=== PATIENT | male | born 1975 | race Caucasian/White ===

== ENCOUNTER 2021-01-09 17:16 | Inpatient (IN) ==
[2021-01-09] MEDS ORDERED: Naloxone 0.4 MG/ML INJ IVP PRN (20:53)
[2021-01-09] MEDS ORDERED: Ondansetron 4 MG/2 ML VIAL IVP PRN (20:53)
[2021-01-09] MEDS ORDERED: Furosemide 20 MG/2 ML VIAL IVP SCH (21:00)
[2021-01-09] MEDS ORDERED: *HR* Heparin 5,000 UNIT/ML VIAL IVP PRN ×2 (22:20)
[2021-01-09] MEDS ORDERED: Ipratropium 1 PUFF INHALER IH ONE (22:21)
[2021-01-09 22:31] LABS: VBG HCO3 29 mEq/L (21-27); VBG PCO2 43 mmHg (41-51); VBG PH 7.44 pH Units (7.32-7.42); VBG PO2 147 mmHg (25-50)
[2021-01-09] MEDS: Heparin 25,000UNIT/250ML 1/2NS 25,000 UNIT/250 ML IV.SOLN IVC SCH (23:09)
[2021-01-09] MEDS: Ipratropium 1 PUFF INHALER IH SCH (23:53)
[2021-01-10] MEDS ORDERED: Ipratropium/Albuterol Neb 3 ML IH SCH
[2021-01-10 03:36] LABS: Basophils # 0.1 K/mcL (0.0-0.2); Basophils % 0.6 %; Hemoglobin 15.6 g/dL (12.9-16.9); Immature Granulocytes % 4.1 % (0-4); Lymphocytes # 0.9 K/mcL (0.6-4.6); Lymphocytes % 7.2 %; Mean Corpuscular HGB Conc 33.9 g/dL (31.6-35.5); Mean Corpuscular Hemoglobin 31.1 pg (28.0-33.3); Mean Corpuscular Volume 91.6 fL (83.0-100.0); Mean Platelet Volume 11.3 fL (9.4-12.4); Monocytes # 0.8 K/mcL (0.0-1.3); Neutrophils # 10.4 K/mcL (1.6-8.9); Nucleated Red Blood Cells 0.2 /100 WBC (0); Platelet Count 166 K/mcL (140-400); Red Blood Count 5.02 M/mcL (4.19-5.50); Red Cell Distribution Width 13.7 % (11.5-14.5); Segmented Neutrophils % 82.1 %; White Blood Count 12.7 K/mcL (4.3-11.1)
[2021-01-10 03:52] LABS: INR 1.4; Prothrombin Time 16.3 Seconds (9.4-12.1)
[2021-01-10 03:53] LABS: Alanine Aminotransferase 31 Units/L (7-52); Albumin 3.6 g/dL (3.5-5.7); Albumin/Globulin Ratio 1.4 (1.1-2.2); Alkaline Phosphatase 82 Units/L (34-104); Aspartate Amino Transferase 69 Units/L (13-39); BUN/Creatinine Ratio 33 (6-26); Bilirubin,Total 1.8 mg/dL (0.3-1.0); Blood Urea Nitrogen 26 mg/dL (6-20); Calcium 8.1 mg/dL (8.6-10.3); Carbon Dioxide 27 mEq/L (23-29); Chloride 101 mEq/L (98-107); Globulin 2.6 g/dL (2.4-3.5); Glucose 123 mg/dL (70-105); Magnesium 2.4 mg/dL (1.6-2.6); Osmolality,Calculated 292 (280-300); Potassium 3.8 mEq/L (3.5-5.1); Sodium 138 mEq/L (136-145); Total Protein 6.2 g/dL (6.4-8.9); eGFR For African Americans > 60 (> 60); eGFR For Non-African Americans > 60 (> 60)
[2021-01-10 03:55] LABS: Heparin anti-factor XA UFH 1.21 IU/mL (0.30-0.70)
[2021-01-10] MEDS: Ipratropium 1 PUFF INHALER IH SCH ×6 (04:27→23:20)
[2021-01-10 04:35] LABS: ABG Base Excess 5 mEq/L (-2 to 3); ABG HCO3 28 mEq/L (21-27); ABG Oxygen Saturation 97 % (95-98); ABG PCO2 36 mmHg (35-45); ABG PH 7.51 pH Units (7.32-7.45); ABG PO2 79 mmHg (85-104); ABG TCO2 29 mEq/L (20-26); Blood Gas Modality ST
[2021-01-10] MEDS ORDERED: *HR* LORazepam 2 MG/ML VIAL IVP ONE (06:35)
[2021-01-10] MEDS: Furosemide 20 MG/2 ML VIAL IVP SCH ×2 (08:18→16:24)
[2021-01-10] MEDS: Dexmedetomidine HCl 400 MCG/100 ML MLS IVC SCH ×3 (08:23→21:45)
[2021-01-10] MEDS: Pantoprazole 40 MG VIAL IVP SCH (08:24)
[2021-01-10] MEDS ORDERED: Remdesivir 100 MG in 0.9 % Sodium Chloride 100 ML IVPB ONE (10:00)
[2021-01-10] MEDS ORDERED: Lidocaine -MPF 1% 5 ML AMPUL INFILT ONE ×2 (10:13→12:04)
[2021-01-10] MEDS: Heparin 25,000UNIT/250ML 1/2NS 25,000 UNIT/250 ML IV.SOLN IVC SCH (13:09)
[2021-01-11 02:02] LABS: Albumin 3.4 g/dL (3.5-5.7); Bilirubin,Direct 0.8 mg/dL (0.0-0.2); Bilirubin,Indirect 1.3 mg/dL (0.0-1.0); Bilirubin,Total 2.1 mg/dL (0.3-1.0)
[2021-01-11 02:05] LABS: Albumin/Globulin Ratio 1.4 (1.1-2.2); Globulin 2.4 g/dL (2.4-3.5); Total Protein 5.8 g/dL (6.4-8.9)
[2021-01-11] MEDS: Dexmedetomidine HCl 400 MCG/100 ML MLS IVC SCH ×4 (02:29→18:42)
[2021-01-11] MEDS: Ipratropium 1 PUFF INHALER IH SCH ×6 (03:24→23:49)
[2021-01-11 06:36] LABS: Hematocrit 45.6 % (37.5-50.1); Mean Corpuscular HGB Conc 32.9 g/dL (31.6-35.5); Mean Corpuscular Hemoglobin 30.3 pg (28.0-33.3); Mean Corpuscular Volume 92.1 fL (83.0-100.0); Mean Platelet Volume 11.4 fL (9.4-12.4); Nucleated Red Blood Cells 0.1 /100 WBC (0); Platelet Count 172 K/mcL (140-400); Red Blood Count 4.95 M/mcL (4.19-5.50); Red Cell Distribution Width 13.4 % (11.5-14.5); White Blood Count 17.9 K/mcL (4.3-11.1)
[2021-01-11 06:46] LABS: Heparin anti-factor XA UFH 0.27 IU/mL (0.30-0.70)
[2021-01-11 06:53] LABS: Alanine Aminotransferase 22 Units/L (7-52); Albumin 3.2 g/dL (3.5-5.7); Albumin/Globulin Ratio 1.3 (1.1-2.2); Alkaline Phosphatase 81 Units/L (34-104); Aspartate Amino Transferase 46 Units/L (13-39); BUN/Creatinine Ratio 34 (6-26); Blood Urea Nitrogen 31 mg/dL (6-20); Carbon Dioxide 28 mEq/L (23-29); Chloride 101 mEq/L (98-107); Globulin 2.4 g/dL (2.4-3.5); Glucose 140 mg/dL (70-105); Osmolality,Calculated 293 (280-300); Sodium 137 mEq/L (136-145); Total Protein 5.6 g/dL (6.4-8.9); eGFR For African Americans > 60 (> 60); eGFR For Non-African Americans > 60 (> 60)
[2021-01-11] MEDS: Heparin 25,000UNIT/250ML 1/2NS 25,000 UNIT/250 ML IV.SOLN IVC SCH (07:30)
[2021-01-11 08:17] LABS: Lymphocytes # 1.1 K/mcL (0.6-4.6); Monocytes # 0.4 K/mcL (0.0-1.3); Neutrophils # 16.5 K/mcL (1.6-8.9); Platelet Estimate Normal (Normal)
[2021-01-11] MEDS: Pantoprazole 40 MG VIAL IVP SCH (08:39)
[2021-01-11] MEDS: Furosemide 20 MG/2 ML VIAL IVP SCH ×2 (08:39→16:53)
[2021-01-11] MEDS: Cholecalciferol (D-3) 1,000 UNIT (25MCG) TABLET PO SCH (11:13)
[2021-01-12] MEDS: Heparin 25,000UNIT/250ML 1/2NS 25,000 UNIT/250 ML IV.SOLN IVC SCH ×4 (00:30→16:00)
[2021-01-12] MEDS: Dexmedetomidine HCl 400 MCG/100 ML MLS IVC SCH ×4 (01:15→21:43)
[2021-01-12] MEDS: Ipratropium 1 PUFF INHALER IH SCH ×6 (03:14→20:24)
[2021-01-12 04:17] LABS: Hematocrit 46.1 % (37.5-50.1); Hemoglobin 15.2 g/dL (12.9-16.9); Mean Corpuscular Hemoglobin 30.4 pg (28.0-33.3); Mean Corpuscular Volume 92.2 fL (83.0-100.0); Platelet Count 201 K/mcL (140-400); Red Cell Distribution Width 13.6 % (11.5-14.5); White Blood Count 20.4 K/mcL (4.3-11.1)
[2021-01-12 04:39] LABS: BUN/Creatinine Ratio 35 (6-26); Blood Urea Nitrogen 35 mg/dL (6-20); Calcium 8.2 mg/dL (8.6-10.3); Carbon Dioxide 29 mEq/L (23-29); Chloride 99 mEq/L (98-107); Glucose 144 mg/dL (70-105); Magnesium 2.8 mg/dL (1.6-2.6); Osmolality,Calculated 297 (280-300); Phosphorous 3.7 mg/dL (2.7-4.5); Sodium 138 mEq/L (136-145); eGFR For African Americans > 60 (> 60); eGFR For Non-African Americans > 60 (> 60)
[2021-01-12] MEDS: Pantoprazole 40 MG VIAL IVP SCH (08:38)
[2021-01-12] MEDS: Furosemide 20 MG/2 ML VIAL IVP SCH ×2 (08:38→16:16)
[2021-01-12] MEDS ORDERED: Saline Nasal Spray 44 ML BOTTLE NS PRN ×2 (08:42→12:01)
[2021-01-12] MEDS: Cholecalciferol (D-3) 1,000 UNIT (25MCG) TABLET PO SCH (10:11)
[2021-01-12] MEDS ORDERED: *HR* Heparin 5,000 UNIT/ML VIAL IVP PRN ×2 (12:01)
[2021-01-12] MEDS ORDERED: Ondansetron 4 MG/2 ML VIAL IVP PRN (12:01)
[2021-01-12] MEDS ORDERED: Naloxone 0.4 MG/ML INJ IVP PRN (12:01)
[2021-01-12] MEDS: Acetaminophen 325 MG TABLET PO PRN (17:26)
[2021-01-13] MEDS: Ipratropium 1 PUFF INHALER IH SCH ×7 (00:04→23:43)
[2021-01-13 03:44] LABS: Hematocrit 42.9 % (37.5-50.1); Hemoglobin 13.9 g/dL (12.9-16.9); Mean Corpuscular HGB Conc 32.4 g/dL (31.6-35.5); Mean Corpuscular Hemoglobin 30.1 pg (28.0-33.3); Mean Corpuscular Volume 92.9 fL (83.0-100.0); Mean Platelet Volume 11.7 fL (9.4-12.4); Platelet Count 235 K/mcL (140-400); Red Blood Count 4.62 M/mcL (4.19-5.50); Red Cell Distribution Width 13.6 % (11.5-14.5); White Blood Count 21.4 K/mcL (4.3-11.1)
[2021-01-13] MEDS: Dexmedetomidine HCl 400 MCG/100 ML MLS IVC SCH ×3 (04:10→19:45)
[2021-01-13 04:21] LABS: Alanine Aminotransferase 14 Units/L (7-52); Albumin 3.1 g/dL (3.5-5.7); Albumin/Globulin Ratio 1.1 (1.1-2.2); Alkaline Phosphatase 57 Units/L (34-104); Aspartate Amino Transferase 38 Units/L (13-39); BUN/Creatinine Ratio 36 (6-26); Bilirubin,Total 1.3 mg/dL (0.3-1.0); Blood Urea Nitrogen 35 mg/dL (6-20); Calcium 7.8 mg/dL (8.6-10.3); Carbon Dioxide 26 mEq/L (23-29); Chloride 94 mEq/L (98-107); Globulin 2.7 g/dL (2.4-3.5); Glucose 214 mg/dL (70-105); Osmolality,Calculated 284 (280-300); Potassium 4.1 mEq/L (3.5-5.1); Sodium 130 mEq/L (136-145); Total Protein 5.8 g/dL (6.4-8.9); eGFR For African Americans > 60 (> 60); eGFR For Non-African Americans > 60 (> 60)
[2021-01-13] MEDS: Furosemide 20 MG/2 ML VIAL IVP SCH ×2 (08:16→15:59)
[2021-01-13] MEDS: Pantoprazole 40 MG VIAL IVP SCH (08:16)
[2021-01-13] MEDS ORDERED: Cholecalciferol (D-3) 1,000 UNIT (25MCG) TABLET PO SCH (09:00)
[2021-01-13] MEDS: Heparin 25,000UNIT/250ML 1/2NS 25,000 UNIT/250 ML IV.SOLN IVC SCH (11:45)
[2021-01-13] MEDS: Cholecalciferol (D-3) 1,000 UNIT (25MCG) TABLET PO SCH (11:45)
[2021-01-14] MEDS: Dexmedetomidine HCl 400 MCG/100 ML MLS IVC SCH ×3 (01:58→16:59)
[2021-01-14] MEDS: Heparin 25,000UNIT/250ML 1/2NS 25,000 UNIT/250 ML IV.SOLN IVC SCH (03:54)
[2021-01-14 04:03] LABS: VBG Ionized Calcium 1.04 mmol/L (1.15-1.35)
[2021-01-14 04:12] LABS: Basophils # 0.1 K/mcL (0.0-0.2); Basophils % 0.5 %; Eosinophils # 0.1 K/mcL (0.0-0.6); Eosinophils % 0.4 %; Hemoglobin 15.1 g/dL (12.9-16.9); Immature Granulocytes % 5.2 % (0-4); Lymphocytes # 1.1 K/mcL (0.6-4.6); Lymphocytes % 4.9 %; Mean Corpuscular HGB Conc 33.6 g/dL (31.6-35.5); Mean Corpuscular Hemoglobin 31.2 pg (28.0-33.3); Mean Platelet Volume 11.7 fL (9.4-12.4); Monocytes % 4.3 %; Neutrophils # 19.3 K/mcL (1.6-8.9); Platelet Count 279 K/mcL (140-400); Red Blood Count 4.84 M/mcL (4.19-5.50); Red Cell Distribution Width 13.3 % (11.5-14.5); Segmented Neutrophils % 84.7 %; White Blood Count 22.8 K/mcL (4.3-11.1)
[2021-01-14] MEDS: Ipratropium 1 PUFF INHALER IH SCH ×5 (04:22→20:24)
[2021-01-14 04:31] LABS: Alanine Aminotransferase 13 Units/L (7-52); Albumin 3.3 g/dL (3.5-5.7); Albumin/Globulin Ratio 1.1 (1.1-2.2); Alkaline Phosphatase 65 Units/L (34-104); Aspartate Amino Transferase 36 Units/L (13-39); BUN/Creatinine Ratio 37 (6-26); Bilirubin,Total 1.3 mg/dL (0.3-1.0); Blood Urea Nitrogen 38 mg/dL (6-20); Calcium 8.3 mg/dL (8.6-10.3); Carbon Dioxide 26 mEq/L (23-29); Chloride 95 mEq/L (98-107); Globulin 3.1 g/dL (2.4-3.5); Glucose 148 mg/dL (70-105); Lactate Dehydrogenase 941 Units/L (140-271); Osmolality,Calculated 286 (280-300); Potassium 4.4 mEq/L (3.5-5.1); Sodium 132 mEq/L (136-145); Total Protein 6.4 g/dL (6.4-8.9); eGFR For African Americans > 60 (> 60); eGFR For Non-African Americans > 60 (> 60)
[2021-01-14 04:52] LABS: Ferritin > 1500 ng/mL (20-250)
[2021-01-14 05:09] LABS: Platelet Estimate Normal (Normal); Toxic Granulation Present (Not Present)
[2021-01-14] MEDS: Calcium Gluconate 1gm/50mL 1 GM/50 ML BAG IVPB SCH ×2 (05:35→06:33)
[2021-01-14] MEDS: Pantoprazole 40 MG VIAL IVP SCH (08:49)
[2021-01-14] MEDS: Furosemide 20 MG/2 ML VIAL IVP SCH ×2 (08:50→16:59)
[2021-01-14] MEDS: Cholecalciferol (D-3) 1,000 UNIT (25MCG) TABLET PO SCH (09:28)
[2021-01-14] MEDS: *HR* Enoxaparin 40 MG/0.4 ML SYRINGE SQ SCH (16:57)
[2021-01-14] MEDS: Acetaminophen 325 MG TABLET PO PRN (20:50)
[2021-01-15] MEDS: Ipratropium 1 PUFF INHALER IH SCH ×7 (00:15→23:46)
[2021-01-15] MEDS: *HR* Enoxaparin 40 MG/0.4 ML SYRINGE SQ SCH (03:11)
[2021-01-15] MEDS: Dexmedetomidine HCl 400 MCG/100 ML MLS IVC SCH ×2 (03:12→17:12)
[2021-01-15 04:01] LABS: Basophils # 0.1 K/mcL (0.0-0.2); Basophils % 0.5 %; Eosinophils # 0.1 K/mcL (0.0-0.6); Eosinophils % 0.3 %; Hematocrit 46.3 % (37.5-50.1); Hemoglobin 15.2 g/dL (12.9-16.9); Immature Granulocytes % 4.1 % (0-4); Lymphocytes # 0.8 K/mcL (0.6-4.6); Lymphocytes % 3.9 %; Mean Corpuscular HGB Conc 32.8 g/dL (31.6-35.5); Mean Corpuscular Hemoglobin 30.4 pg (28.0-33.3); Mean Corpuscular Volume 92.6 fL (83.0-100.0); Mean Platelet Volume 11.5 fL (9.4-12.4); Monocytes # 0.8 K/mcL (0.0-1.3); Monocytes % 4.1 %; Neutrophils # 17.8 K/mcL (1.6-8.9); Platelet Count 259 K/mcL (140-400); Red Cell Distribution Width 13.3 % (11.5-14.5); Segmented Neutrophils % 87.1 %; White Blood Count 20.5 K/mcL (4.3-11.1)
[2021-01-15 04:42] LABS: Alanine Aminotransferase 13 Units/L (7-52); Albumin 3.2 g/dL (3.5-5.7); Albumin/Globulin Ratio 0.9 (1.1-2.2); Alkaline Phosphatase 61 Units/L (34-104); Aspartate Amino Transferase 35 Units/L (13-39); BUN/Creatinine Ratio 39 (6-26); Bilirubin,Total 1.3 mg/dL (0.3-1.0); Blood Urea Nitrogen 42 mg/dL (6-20); Calcium 8.3 mg/dL (8.6-10.3); Carbon Dioxide 27 mEq/L (23-29); Chloride 96 mEq/L (98-107); Globulin 3.6 g/dL (2.4-3.5); Glucose 122 mg/dL (70-105); Magnesium 2.9 mg/dL (1.6-2.6); Osmolality,Calculated 288 (280-300); Potassium 4.3 mEq/L (3.5-5.1); Sodium 133 mEq/L (136-145); Total Protein 6.8 g/dL (6.4-8.9); eGFR For African Americans > 60 (> 60); eGFR For Non-African Americans > 60 (> 60)
[2021-01-15] MEDS ORDERED: *HR* Heparin 5,000 UNIT/ML VIAL IVP ONE (08:30)
[2021-01-15] MEDS ORDERED: *HR* Heparin 5,000 UNIT/ML VIAL IVP PRN ×2 (08:30)
[2021-01-15] MEDS: Furosemide 20 MG/2 ML VIAL IVP SCH ×2 (09:24→18:35)
[2021-01-15] MEDS: Pantoprazole 40 MG VIAL IVP SCH (09:24)
[2021-01-15 10:19] LABS: Hematocrit 47.8 % (37.5-50.1); Hemoglobin 15.5 g/dL (12.9-16.9); Mean Corpuscular HGB Conc 32.4 g/dL (31.6-35.5); Mean Corpuscular Hemoglobin 30.5 pg (28.0-33.3); Mean Corpuscular Volume 93.9 fL (83.0-100.0); Mean Platelet Volume 11.1 fL (9.4-12.4); Platelet Count 242 K/mcL (140-400); Red Blood Count 5.09 M/mcL (4.19-5.50); Red Cell Distribution Width 13.2 % (11.5-14.5); White Blood Count 19.4 K/mcL (4.3-11.1)
[2021-01-15 10:29] LABS: Heparin anti-factor XA UFH 0.15 IU/mL (0.30-0.70)
[2021-01-15 10:30] LABS: INR 1.5; Prothrombin Time 17.1 Seconds (9.4-12.1)
[2021-01-15] MEDS: Heparin 25,000UNIT/250ML 1/2NS 25,000 UNIT/250 ML IV.SOLN IVC SCH (12:06)
[2021-01-15] MEDS ORDERED: *HR* LORazepam 2 MG/ML VIAL IVP ONE (12:21)
[2021-01-15] MEDS ORDERED: *HR* LORazepam 2 MG/ML VIAL ONE (12:23)
[2021-01-15] MEDS: Cholecalciferol (D-3) 1,000 UNIT (25MCG) TABLET PO SCH (20:29)
[2021-01-15] MEDS: *HR* LORazepam 2 MG/ML VIAL IVP PRN (23:29)
[2021-01-16] MEDS: Heparin 25,000UNIT/250ML 1/2NS 25,000 UNIT/250 ML IV.SOLN IVC SCH ×2 (01:14→15:14)
[2021-01-16] MEDS: Ipratropium 1 PUFF INHALER IH SCH ×5 (03:47→20:12)
[2021-01-16 05:11] LABS: Basophils # 0.1 K/mcL (0.0-0.2); Basophils % 0.5 %; Eosinophils # 0.1 K/mcL (0.0-0.6); Eosinophils % 0.2 %; Hematocrit 40.4 % (37.5-50.1); Immature Granulocytes % 4.9 % (0-4); Lymphocytes # 0.9 K/mcL (0.6-4.6); Lymphocytes % 4.3 %; Mean Corpuscular HGB Conc 33.9 g/dL (31.6-35.5); Mean Corpuscular Hemoglobin 31.5 pg (28.0-33.3); Mean Corpuscular Volume 92.9 fL (83.0-100.0); Mean Platelet Volume 11.4 fL (9.4-12.4); Monocytes % 4.9 %; Neutrophils # 17.6 K/mcL (1.6-8.9); Platelet Count 201 K/mcL (140-400); Red Blood Count 4.35 M/mcL (4.19-5.50); Red Cell Distribution Width 13.2 % (11.5-14.5); Segmented Neutrophils % 85.2 %; White Blood Count 20.6 K/mcL (4.3-11.1)
[2021-01-16 05:13] LABS: Hemoglobin 13.7 g/dL (12.9-16.9)
[2021-01-16] MEDS: Dexmedetomidine HCl 400 MCG/100 ML MLS IVC SCH (05:19)
[2021-01-16] MEDS: Pantoprazole 40 MG VIAL IVP SCH (08:14)
[2021-01-16] MEDS: Furosemide 20 MG/2 ML VIAL IVP SCH ×2 (08:14→17:25)
[2021-01-16] MEDS: Cholecalciferol (D-3) 1,000 UNIT (25MCG) TABLET PO SCH (08:20)
[2021-01-16 11:02] LABS: Albumin/Globulin Ratio 0.9 (1.1-2.2); Alkaline Phosphatase 54 Units/L (34-104); Aspartate Amino Transferase 32 Units/L (13-39); Bilirubin,Total 1.3 mg/dL (0.3-1.0); C-Reactive Protein 121 mg/L (Less than 10); Calcium 7.6 mg/dL (8.6-10.3); Chloride 95 mEq/L (98-107); Ferritin > 1500 ng/mL (20-250); Globulin 3.5 g/dL (2.4-3.5); Glucose 113 mg/dL (70-105); Lactate Dehydrogenase 768 Units/L (140-271); Potassium 3.9 mEq/L (3.5-5.1); Sodium 130 mEq/L (136-145); Total Protein 6.5 g/dL (6.4-8.9)
[2021-01-16 12:57] LABS: Alanine Aminotransferase 10 Units/L (7-52); BUN/Creatinine Ratio 39 (6-26); Blood Urea Nitrogen 36 mg/dL (6-20); Carbon Dioxide 23 mEq/L (23-29); Magnesium 2.7 mg/dL (1.6-2.6); Osmolality,Calculated 279 (280-300); Phosphorous 3.8 mg/dL (2.7-4.5); Triglycerides 183 mg/dL (< 150); eGFR For African Americans > 60 (> 60); eGFR For Non-African Americans > 60 (> 60)
[2021-01-16] MEDS ORDERED: D10% in Water 500 ML IVC PRN (13:10)
[2021-01-16] MEDS ORDERED: D5% in Water 1,000 ML IVC PRN (13:27)
[2021-01-16] MEDS ORDERED: Dextrose Gel 15 GM/37.5 ML TUBE PO PRN ×2 (13:27)
[2021-01-16] MEDS ORDERED: *HR* Dextrose 50 % in Water (Vial) 50 ML VIAL IVP PRN (13:27)
[2021-01-16] MEDS ORDERED: Insulin LISPRO 300 UNITS/3 ML VIAL SUBQ SCH (13:30)
[2021-01-16] MEDS: Insulin LISPRO 300 UNITS/3 ML VIAL SUBQ SCH ×2 (15:38→20:01)
[2021-01-16] MEDS ORDERED: Clinimix E 5%-15% SOLUTION 2,000 ML with MVI, adult with vitamin K 10 ML IVC SCH (17:00)
[2021-01-16] MEDS: *HR* LORazepam 2 MG/ML VIAL IVP PRN (20:47)
[2021-01-17] MEDS: Ipratropium 1 PUFF INHALER IH SCH ×6 (00:04→20:06)
[2021-01-17] MEDS: Insulin LISPRO 300 UNITS/3 ML VIAL SUBQ SCH ×6 (01:49→20:33)
[2021-01-17] MEDS: Heparin 25,000UNIT/250ML 1/2NS 25,000 UNIT/250 ML IV.SOLN IVC SCH ×2 (03:50→17:52)
[2021-01-17] MEDS: Dexmedetomidine HCl 400 MCG/100 ML MLS IVC SCH ×2 (04:23→15:20)
[2021-01-17 04:48] LABS: Alanine Aminotransferase 8 Units/L (7-52); Albumin 3.2 g/dL (3.5-5.7); Albumin/Globulin Ratio 0.9 (1.1-2.2); Alkaline Phosphatase 59 Units/L (34-104); Aspartate Amino Transferase 34 Units/L (13-39); BUN/Creatinine Ratio 36 (6-26); Bilirubin,Total 1.7 mg/dL (0.3-1.0); Blood Urea Nitrogen 32 mg/dL (6-20); Calcium 8.1 mg/dL (8.6-10.3); Carbon Dioxide 27 mEq/L (23-29); Chloride 93 mEq/L (98-107); Globulin 3.5 g/dL (2.4-3.5); Glucose 116 mg/dL (70-105); Magnesium 2.8 mg/dL (1.6-2.6); Osmolality,Calculated 276 (280-300); Phosphorous 2.6 mg/dL (2.7-4.5); Potassium 3.9 mEq/L (3.5-5.1); Sodium 129 mEq/L (136-145); Total Protein 6.7 g/dL (6.4-8.9); eGFR For African Americans > 60 (> 60); eGFR For Non-African Americans > 60 (> 60)
[2021-01-17] MEDS: Pantoprazole 40 MG VIAL IVP SCH (07:24)
[2021-01-17] MEDS: Furosemide 20 MG/2 ML VIAL IVP SCH ×2 (07:24→17:46)
[2021-01-17 08:14] LABS: Red Cell Distribution Width 13.2 % (11.5-14.5)
[2021-01-17 08:16] LABS: Hematocrit 46.8 % (37.5-50.1); Hemoglobin 15.6 g/dL (12.9-16.9); Mean Corpuscular HGB Conc 33.3 g/dL (31.6-35.5); Mean Corpuscular Hemoglobin 30.6 pg (28.0-33.3); Mean Corpuscular Volume 91.8 fL (83.0-100.0); Mean Platelet Volume 11.4 fL (9.4-12.4); Platelet Count 276 K/mcL (140-400); White Blood Count 28.1 K/mcL (4.3-11.1)
[2021-01-17] MEDS: Cholecalciferol (D-3) 1,000 UNIT (25MCG) TABLET PO SCH (08:32)
[2021-01-17 09:16] LABS: Lymphocytes # 1.1 K/mcL (0.6-4.6); Monocytes # 0.6 K/mcL (0.0-1.3); Neutrophils # 26.4 K/mcL (1.6-8.9); Platelet Estimate Normal (Normal)
[2021-01-17] MEDS ORDERED: Clinimix 5%-20% SOLUTION 2,000 ML with MVI, adult with vitamin K 10 ML, Sodium Phosph... IVC SCH (17:00)
[2021-01-18] MEDS: Ipratropium 1 PUFF INHALER IH SCH ×6 (00:02→19:29)
[2021-01-18] MEDS: Insulin LISPRO 300 UNITS/3 ML VIAL SUBQ SCH ×7 (01:23→23:33)
[2021-01-18 04:55] LABS: Basophils % 0.1 %; Mean Corpuscular HGB Conc 33.5 g/dL (31.6-35.5)
[2021-01-18 04:57] LABS: Eosinophils # 0.1 K/mcL (0.0-0.6); Eosinophils % 0.3 %; Hematocrit 44.8 % (37.5-50.1); Lymphocytes # 1.5 K/mcL (0.6-4.6); Mean Corpuscular Hemoglobin 30.5 pg (28.0-33.3); Mean Corpuscular Volume 91.2 fL (83.0-100.0); Mean Platelet Volume 11.7 fL (9.4-12.4); Monocytes # 1.2 K/mcL (0.0-1.3); Neutrophils # 25.1 K/mcL (1.6-8.9); Platelet Count 244 K/mcL (140-400); Red Blood Count 4.91 M/mcL (4.19-5.50); Red Cell Distribution Width 13.1 % (11.5-14.5); Segmented Neutrophils % 83.6 %
[2021-01-18 05:31] LABS: Alanine Aminotransferase 10 Units/L (7-52); Albumin 3.2 g/dL (3.5-5.7); Alkaline Phosphatase 56 Units/L (34-104); Aspartate Amino Transferase 36 Units/L (13-39); BUN/Creatinine Ratio 36 (6-26); Bilirubin,Total 1.5 mg/dL (0.3-1.0); Blood Urea Nitrogen 31 mg/dL (6-20); Calcium 8.3 mg/dL (8.6-10.3); Carbon Dioxide 26 mEq/L (23-29); Chloride 92 mEq/L (98-107); Ferritin > 1500 ng/mL (20-250); Glucose 146 mg/dL (70-105); Lactate Dehydrogenase 808 Units/L (140-271); Magnesium 2.8 mg/dL (1.6-2.6); Osmolality,Calculated 275 (280-300); Phosphorous 3.5 mg/dL (2.7-4.5); Potassium 3.9 mEq/L (3.5-5.1); Sodium 128 mEq/L (136-145); eGFR For African Americans > 60 (> 60); eGFR For Non-African Americans > 60 (> 60)
[2021-01-18] MEDS: Dexmedetomidine HCl 400 MCG/100 ML MLS IVC SCH ×3 (05:52→21:13)
[2021-01-18 05:53] LABS: Albumin/Globulin Ratio 0.9 (1.1-2.2); Globulin 3.4 g/dL (2.4-3.5); Total Protein 6.6 g/dL (6.4-8.9)
[2021-01-18] MEDS: *HR* LORazepam 2 MG/ML VIAL IVP PRN (05:59)
[2021-01-18] MEDS: Furosemide 20 MG/2 ML VIAL IVP SCH ×3 (07:25→17:36)
[2021-01-18] MEDS: Pantoprazole 40 MG VIAL IVP SCH (07:26)
[2021-01-18] MEDS: Heparin 25,000UNIT/250ML 1/2NS 25,000 UNIT/250 ML IV.SOLN IVC SCH ×3 (07:28→22:39)
[2021-01-18] MEDS ORDERED: Artificial Tears SOLN 15 ML BOTTLE BOTH EYES PRN (08:24)
[2021-01-18] MEDS ORDERED: *HR* Enoxaparin 40 MG/0.4 ML SYRINGE SQ SCH (09:00)
[2021-01-18] MEDS: Midazolam HCl 50 MG/100 ML IV.SOLN IVC SCH ×2 (09:08→18:14)
[2021-01-18] MEDS: FentaNYL (PF) 1,000 MCG/100 ML IV.SOLN IVC SCH ×2 (09:08→20:41)
[2021-01-18] MEDS: Cisatracurium 200 MG in 0.9 % Sodium Chloride 180 ML IVC SCH ×2 (09:08→18:14)
[2021-01-18] MEDS: Budesonide/Formoterol 160/4.5 1 PUFF INH IH SCH ×2 (09:35→19:29)
[2021-01-18 09:54] LABS: ABG Base Excess 1 mEq/L (-2 to 3); ABG HCO3 30 mEq/L (21-27); ABG Oxygen Saturation 91 % (95-98); ABG PCO2 67 mmHg (35-45); ABG PH 7.27 pH Units (7.32-7.45); ABG PO2 73 mmHg (85-104); ABG TCO2 32 mEq/L (20-26); Blood Gas Modality ASSIST CONTROL; Blood Gas VT 550 cc
[2021-01-18] MEDS: Chlorhexidine Rinse 15 ML MOUTHWASH MM SCH ×2 (10:08→20:38)
[2021-01-18] MEDS: Norepinephrine 4 MG/254 ML IV.SOLN IVC SCH (12:01)
[2021-01-18] MEDS ORDERED: *HR* Heparin 5,000 UNIT/ML VIAL IVP PRN ×2 (14:40)
[2021-01-18] MEDS ORDERED: *HR* Heparin 5,000 UNIT/ML VIAL IVP ONE (14:40)
[2021-01-18] MEDS: Artificial Tears SOLN 15 ML BOTTLE BOTH EYES SCH ×4 (14:45→23:23)
[2021-01-18] MEDS: Cholecalciferol (D-3) 1,000 UNIT (25MCG) TABLET PO SCH (14:45)
[2021-01-18 15:18] LABS: ABG Base Excess 0 mEq/L (-2 to 3); ABG HCO3 29 mEq/L (21-27); ABG Oxygen Saturation 97 % (95-98); ABG PCO2 63 mmHg (35-45); ABG PH 7.27 pH Units (7.32-7.45); ABG PO2 107 mmHg (85-104); ABG TCO2 31 mEq/L (20-26); Blood Gas Modality ASSIST CONTROL; Blood Gas VT 550 cc
[2021-01-18 15:52] LABS: Heparin anti-factor XA UFH 0.57 IU/mL (0.30-0.70); INR 1.3; Prothrombin Time 14.1 Seconds (9.4-12.1)
[2021-01-18 16:37] LABS: Bacteria,Urine Few per hpf (None-Few); Bilirubin,Urine Negative (Negative); Blood,Urine Trace (Negative); Clarity,Urine Clear (Clear); Color,Urine Yellow (Yellow); Glucose,Urine (UA) >=1000 mg/dL (Normal); Ketones,Urine Negative (Negative); Leukocyte Esterase,Urine Negative (Negative); Mucus,Urine Few per lpf (None-Few); Nitrite,Urine Negative (Negative); Protein,Urine Trace mg/dL (Neg-Trace); RBC,Urine 0-3 per hpf (0-3); Specific Gravity,Urine 1.027 (1.010-1.025); Squamous Epithelial Cell,Urine Few per hpf (None-Few); Urobilinogen,Urine Normal (Normal); WBC,Urine 0-3 per hpf (0-3)
[2021-01-18 16:43] LABS: Heparin anti-factor XA UFH 0.64 IU/mL (0.30-0.70)
[2021-01-18 16:46] LABS: Activated Partial Thrombo Time 66.4 Seconds (26.0-36.0)
[2021-01-18] MEDS ORDERED: Clinimix 5%-20% SOLUTION 2,000 ML with MVI, adult with vitamin K 10 ML, Sodium Phosph... IVC SCH ×2 (17:00)
[2021-01-18] MEDS ORDERED: *HR* Etomidate 20 MG/10 ML AMPUL IVP ONE (17:16)
[2021-01-18] MEDS ORDERED: *HR* Rocuronium Bromide 50 MG/5 ML VIAL IVP ONE (17:16)
[2021-01-18] MEDS ORDERED: *HR* Midazolam HCl 5 MG/5 ML VIAL IVP ONE ×2 (17:16)
[2021-01-18] MEDS ORDERED: *HR* Succinylcholine 200 MG/10 ML VIAL IVP ONE (17:16)
[2021-01-18 21:51] LABS: Hematocrit 45.4 % (37.5-50.1); Hemoglobin 14.8 g/dL (12.9-16.9); Mean Corpuscular HGB Conc 32.6 g/dL (31.6-35.5); Mean Corpuscular Hemoglobin 31.5 pg (28.0-33.3); Mean Corpuscular Volume 96.6 fL (83.0-100.0); Mean Platelet Volume 11.6 fL (9.4-12.4); Platelet Count 237 K/mcL (140-400); Red Cell Distribution Width 13.2 % (11.5-14.5)
[2021-01-18 21:58] LABS: White Blood Count 31.1 K/mcL (4.3-11.1)
[2021-01-19] MEDS: Ipratropium 1 PUFF INHALER IH SCH ×7 (00:03→23:41)
[2021-01-19 00:08] LABS: ABG Base Excess 2 mEq/L (-2 to 3); ABG HCO3 33 mEq/L (21-27); ABG Oxygen Saturation 97 % (95-98); ABG PCO2 81 mmHg (35-45); ABG PH 7.22 pH Units (7.32-7.45); ABG PO2 110 mmHg (85-104); ABG TCO2 35 mEq/L (20-26); Blood Gas VT 450 cc
[2021-01-19] MEDS: Cisatracurium 200 MG in 0.9 % Sodium Chloride 180 ML IVC SCH ×3 (01:39→19:05)
[2021-01-19] MEDS: Artificial Tears SOLN 15 ML BOTTLE BOTH EYES SCH ×6 (03:16→23:38)
[2021-01-19] MEDS: Midazolam HCl 50 MG/100 ML IV.SOLN IVC SCH ×2 (03:18→14:14)
[2021-01-19] MEDS: Insulin LISPRO 300 UNITS/3 ML VIAL SUBQ SCH ×6 (04:05→23:39)
[2021-01-19 04:07] LABS: Eosinophils % 0.1 %; Hemoglobin 14.2 g/dL (12.9-16.9)
[2021-01-19 04:09] LABS: Basophils # 0.1 K/mcL (0.0-0.2); Basophils % 0.2 %; Immature Granulocytes % 8.4 % (0-4); Lymphocytes # 1.2 K/mcL (0.6-4.6); Lymphocytes % 4.1 %; Mean Corpuscular HGB Conc 32.3 g/dL (31.6-35.5); Mean Corpuscular Volume 96.1 fL (83.0-100.0); Monocytes % 5.3 %; Platelet Count 253 K/mcL (140-400); Red Blood Count 4.58 M/mcL (4.19-5.50); Red Cell Distribution Width 13.3 % (11.5-14.5); Segmented Neutrophils % 81.9 %
[2021-01-19 04:10] LABS: Monocytes # 1.5 K/mcL (0.0-1.3); Neutrophils # 23.8 K/mcL (1.6-8.9)
[2021-01-19 04:13] LABS: VBG Ionized Calcium 1.18 mmol/L (1.15-1.35)
[2021-01-19 04:23] LABS: Heparin anti-factor XA UFH 0.58 IU/mL (0.30-0.70)
[2021-01-19 04:27] LABS: BUN/Creatinine Ratio 37 (6-26); Blood Urea Nitrogen 26 mg/dL (6-20); Calcium 8.1 mg/dL (8.6-10.3); Carbon Dioxide 28 mEq/L (23-29); Chloride 94 mEq/L (98-107); Glucose 246 mg/dL (70-105); Magnesium 2.5 mg/dL (1.6-2.6); Osmolality,Calculated 281 (280-300); Phosphorous 3.5 mg/dL (2.7-4.5); Potassium 4.5 mEq/L (3.5-5.1); Sodium 129 mEq/L (136-145); eGFR For African Americans > 60 (> 60); eGFR For Non-African Americans > 60 (> 60)
[2021-01-19 04:28] LABS: ABG Base Excess 4 mEq/L (-2 to 3); ABG HCO3 33 mEq/L (21-27); ABG Oxygen Saturation 99 % (95-98); ABG PCO2 69 mmHg (35-45); ABG PH 7.29 pH Units (7.32-7.45); ABG PO2 134 mmHg (85-104); ABG TCO2 35 mEq/L (20-26); Blood Gas VT 480 cc
[2021-01-19] MEDS: Dexmedetomidine HCl 400 MCG/100 ML MLS IVC SCH ×3 (04:38→23:18)
[2021-01-19] MEDS: Pantoprazole 40 MG VIAL IVP SCH (07:28)
[2021-01-19] MEDS: Chlorhexidine Rinse 15 ML MOUTHWASH MM SCH ×2 (07:29→20:42)
[2021-01-19] MEDS: Cholecalciferol (D-3) 1,000 UNIT (25MCG) TABLET PO SCH (07:29)
[2021-01-19] MEDS: Furosemide 20 MG/2 ML VIAL IVP SCH ×2 (07:30→16:02)
[2021-01-19] MEDS: Budesonide/Formoterol 160/4.5 1 PUFF INH IH SCH ×2 (07:33→19:51)
[2021-01-19] MEDS: FentaNYL (PF) 1,000 MCG/100 ML IV.SOLN IVC SCH (10:40)
[2021-01-19] MEDS: Norepinephrine 4 MG/254 ML IV.SOLN IVC SCH (12:07)
[2021-01-19] MEDS ORDERED: Clinimix 5%-20% SOLUTION 2,000 ML with MVI, adult with vitamin K 10 ML, Sodium Phosph... IVC SCH ×2 (17:00)
[2021-01-19] MEDS: Heparin 25,000UNIT/250ML 1/2NS 25,000 UNIT/250 ML IV.SOLN IVC SCH (20:43)
[2021-01-20] MEDS: Midazolam HCl 50 MG/100 ML IV.SOLN IVC SCH ×3 (00:37→21:47)
[2021-01-20] MEDS: FentaNYL (PF) 1,000 MCG/100 ML IV.SOLN IVC SCH ×2 (00:42→14:20)
[2021-01-20] MEDS: Heparin 25,000UNIT/250ML 1/2NS 25,000 UNIT/250 ML IV.SOLN IVC SCH ×2 (00:43→15:46)
[2021-01-20] MEDS: Cisatracurium 200 MG in 0.9 % Sodium Chloride 180 ML IVC SCH ×3 (03:18→20:34)
[2021-01-20] MEDS: Ipratropium 1 PUFF INHALER IH SCH ×6 (03:28→23:50)
[2021-01-20 03:54] LABS: Mean Platelet Volume 11.2 fL (9.4-12.4); Red Cell Distribution Width 13.5 % (11.5-14.5)
[2021-01-20 03:55] LABS: Hematocrit 44.2 % (37.5-50.1); Hemoglobin 13.7 g/dL (12.9-16.9); Mean Corpuscular Hemoglobin 30.5 pg (28.0-33.3); Mean Corpuscular Volume 98.4 fL (83.0-100.0); Platelet Count 252 K/mcL (140-400); Red Blood Count 4.49 M/mcL (4.19-5.50); White Blood Count 26.8 K/mcL (4.3-11.1)
[2021-01-20 04:10] LABS: BUN/Creatinine Ratio 38 (6-26); Blood Urea Nitrogen 26 mg/dL (6-20); Calcium 8.5 mg/dL (8.6-10.3); Carbon Dioxide 33 mEq/L (23-29); Chloride 95 mEq/L (98-107); Glucose 229 mg/dL (70-105); Magnesium 2.3 mg/dL (1.6-2.6); Osmolality,Calculated 288 (280-300); Phosphorous 2.4 mg/dL (2.7-4.5); Sodium 133 mEq/L (136-145); eGFR For African Americans > 60 (> 60); eGFR For Non-African Americans > 60 (> 60)
[2021-01-20 04:12] LABS: ABG Base Excess 6 mEq/L (-2 to 3); ABG HCO3 35 mEq/L (21-27); ABG Oxygen Saturation 97 % (95-98); ABG PCO2 67 mmHg (35-45); ABG PH 7.32 pH Units (7.32-7.45); ABG PO2 103 mmHg (85-104); ABG TCO2 37 mEq/L (20-26); Blood Gas VT 480 cc
[2021-01-20] MEDS: Artificial Tears SOLN 15 ML BOTTLE BOTH EYES SCH ×5 (04:13→19:35)
[2021-01-20] MEDS: Insulin LISPRO 300 UNITS/3 ML VIAL SUBQ SCH ×4 (04:13→19:37)
[2021-01-20] MEDS: Norepinephrine 4 MG/254 ML IV.SOLN IVC SCH (04:14)
[2021-01-20 04:15] LABS: VBG Ionized Calcium 1.15 mmol/L (1.15-1.35)
[2021-01-20 04:28] LABS: Heparin anti-factor XA UFH 0.18 IU/mL (0.30-0.70)
[2021-01-20 04:39] LABS: Neutrophils # 25.2 K/mcL (1.6-8.9); Platelet Estimate Normal (Normal); Toxic Granulation Present (Not Present)
[2021-01-20] MEDS: Dexmedetomidine HCl 400 MCG/100 ML MLS IVC SCH ×4 (05:17→22:45)
[2021-01-20] MEDS: Budesonide/Formoterol 160/4.5 1 PUFF INH IH SCH ×2 (07:25→20:05)
[2021-01-20] MEDS: Chlorhexidine Rinse 15 ML MOUTHWASH MM SCH ×2 (08:45→19:35)
[2021-01-20] MEDS: Furosemide 20 MG/2 ML VIAL IVP SCH ×2 (08:45→17:05)
[2021-01-20] MEDS: Pantoprazole 40 MG VIAL IVP SCH (08:45)
[2021-01-20] MEDS: Cholecalciferol (D-3) 1,000 UNIT (25MCG) TABLET PO SCH (08:45)
[2021-01-20] MEDS ORDERED: Clinimix 5%-20% SOLUTION 2,000 ML with MVI, adult with vitamin K 10 ML, Sodium Phosph... IVC SCH (17:00)
[2021-01-21] MEDS: Artificial Tears SOLN 15 ML BOTTLE BOTH EYES SCH ×5 (00:01→20:04)
[2021-01-21] MEDS: Insulin LISPRO 300 UNITS/3 ML VIAL SUBQ SCH ×7 (00:02→23:30)
[2021-01-21] MEDS: FentaNYL (PF) 1,000 MCG/100 ML IV.SOLN IVC SCH ×3 (01:14→23:29)
[2021-01-21] MEDS: Ipratropium 1 PUFF INHALER IH SCH ×5 (03:34→20:13)
[2021-01-21 03:52] LABS: Hematocrit 42.4 % (37.5-50.1); Hemoglobin 13.1 g/dL (12.9-16.9); Mean Corpuscular HGB Conc 30.9 g/dL (31.6-35.5); Mean Corpuscular Hemoglobin 30.5 pg (28.0-33.3); Mean Corpuscular Volume 98.8 fL (83.0-100.0); Mean Platelet Volume 11.1 fL (9.4-12.4); Platelet Count 161 K/mcL (140-400); Red Blood Count 4.29 M/mcL (4.19-5.50); Red Cell Distribution Width 13.7 % (11.5-14.5); White Blood Count 29.8 K/mcL (4.3-11.1)
[2021-01-21] MEDS: Heparin 25,000UNIT/250ML 1/2NS 25,000 UNIT/250 ML IV.SOLN IVC SCH ×2 (03:57→17:45)
[2021-01-21 04:00] LABS: BUN/Creatinine Ratio 45 (6-26); Blood Urea Nitrogen 25 mg/dL (6-20); Calcium 8.3 mg/dL (8.6-10.3); Carbon Dioxide 35 mEq/L (23-29); Chloride 93 mEq/L (98-107); Glucose 251 mg/dL (70-105); Magnesium 2.3 mg/dL (1.6-2.6); Osmolality,Calculated 287 (280-300); Phosphorous 2.6 mg/dL (2.7-4.5); Potassium 4.9 mEq/L (3.5-5.1); Sodium 132 mEq/L (136-145); eGFR For African Americans > 60 (> 60); eGFR For Non-African Americans > 60 (> 60)
[2021-01-21] MEDS: Cisatracurium 200 MG in 0.9 % Sodium Chloride 180 ML IVC SCH ×3 (04:25→21:50)
[2021-01-21] MEDS: Dexmedetomidine HCl 400 MCG/100 ML MLS IVC SCH ×4 (04:27→22:06)
[2021-01-21 04:44] LABS: Lymphocytes # 4.8 K/mcL (0.6-4.6); Monocytes # 1.8 K/mcL (0.0-1.3); Neutrophils # 22.1 K/mcL (1.6-8.9); Platelet Estimate Normal (Normal); Reactive Lymphocytes Present (Not Present); Toxic Granulation Present (Not Present)
[2021-01-21 05:15] LABS: ABG Base Excess 10 mEq/L (-2 to 3); ABG HCO3 39 mEq/L (21-27); ABG Oxygen Saturation 93 % (95-98); ABG PCO2 72 mmHg (35-45); ABG PH 7.34 pH Units (7.32-7.45); ABG PO2 74 mmHg (85-104); ABG TCO2 41 mEq/L (20-26); Blood Gas Modality ASSIST CONTROL; Blood Gas VT 480 cc
[2021-01-21] MEDS: Pantoprazole 40 MG VIAL IVP SCH (08:05)
[2021-01-21] MEDS: Midazolam HCl 50 MG/100 ML IV.SOLN IVC SCH ×2 (08:05→19:00)
[2021-01-21] MEDS: Dexamethasone Sodium Phos/PF 10 MG/ML VIAL IVP SCH (08:06)
[2021-01-21] MEDS: Chlorhexidine Rinse 15 ML MOUTHWASH MM SCH ×2 (08:06→19:48)
[2021-01-21] MEDS: Furosemide 20 MG/2 ML VIAL IVP SCH ×2 (08:07→17:43)
[2021-01-21] MEDS: Cholecalciferol (D-3) 1,000 UNIT (25MCG) TABLET PO SCH (08:07)
[2021-01-21] MEDS: Budesonide/Formoterol 160/4.5 1 PUFF INH IH SCH ×2 (08:27→20:13)
[2021-01-21] MEDS: Norepinephrine 4 MG/254 ML IV.SOLN IVC SCH (12:03)
[2021-01-21] MEDS: Nystatin SUSP 5 ML UD.LIQ PO SCH ×3 (15:01→19:48)
[2021-01-21] MEDS: Lacri-Lube 3.5 GM TUBE BOTH EYES SCH (15:02)
[2021-01-21] MEDS ORDERED: Clinimix 5%-20% SOLUTION 2,000 ML with MVI, adult with vitamin K 10 ML, Sodium Phosph... IVC SCH (17:00)
[2021-01-22] MEDS: Ipratropium 1 PUFF INHALER IH SCH ×5 (00:01→21:57)
[2021-01-22] MEDS: Insulin LISPRO 300 UNITS/3 ML VIAL SUBQ SCH ×6 (04:16→23:34)
[2021-01-22] MEDS: Dexmedetomidine HCl 400 MCG/100 ML MLS IVC SCH ×4 (04:17→21:12)
[2021-01-22 04:43] LABS: Hematocrit 40.5 % (37.5-50.1); Hemoglobin 12.6 g/dL (12.9-16.9); Mean Corpuscular HGB Conc 31.1 g/dL (31.6-35.5); Mean Corpuscular Hemoglobin 31.5 pg (28.0-33.3); Mean Corpuscular Volume 101.3 fL (83.0-100.0); Platelet Count 105 K/mcL (140-400)
[2021-01-22 04:50] LABS: BUN/Creatinine Ratio 43 (6-26); Blood Urea Nitrogen 26 mg/dL (6-20); Calcium 7.8 mg/dL (8.6-10.3); Carbon Dioxide 34 mEq/L (23-29); Chloride 95 mEq/L (98-107); Glucose 239 mg/dL (70-105); Magnesium 2.1 mg/dL (1.6-2.6); Osmolality,Calculated 289 (280-300); Phosphorous 3.6 mg/dL (2.7-4.5); Potassium 5.4 mEq/L (3.5-5.1); Sodium 133 mEq/L (136-145); eGFR For African Americans > 60 (> 60); eGFR For Non-African Americans > 60 (> 60)
[2021-01-22 04:52] LABS: White Blood Count 30.3 K/mcL (4.3-11.1)
[2021-01-22 05:03] LABS: ABG Base Excess 10 mEq/L (-2 to 3); ABG HCO3 41 mEq/L (21-27); ABG Oxygen Saturation 88 % (95-98); ABG PCO2 84 mmHg (35-45); ABG PO2 64 mmHg (85-104); ABG TCO2 43 mEq/L (20-26); Blood Gas Modality ASSIST CONTROL; Blood Gas VT 480 cc
[2021-01-22] MEDS: Midazolam HCl 50 MG/100 ML IV.SOLN IVC SCH (05:10)
[2021-01-22 05:42] LABS: Lymphocytes # 2.4 K/mcL (0.6-4.6); Neutrophils # 24.2 K/mcL (1.6-8.9)
[2021-01-22 05:43] LABS: Platelet Estimate Decreased (Normal); Reactive Lymphocytes Present (Not Present)
[2021-01-22] MEDS: Cisatracurium 200 MG in 0.9 % Sodium Chloride 180 ML IVC SCH ×3 (06:37→23:10)
[2021-01-22] MEDS: Chlorhexidine Rinse 15 ML MOUTHWASH MM SCH ×2 (07:41→20:38)
[2021-01-22] MEDS: Pantoprazole 40 MG VIAL IVP SCH (07:41)
[2021-01-22] MEDS: Dexamethasone Sodium Phos/PF 10 MG/ML VIAL IVP SCH (07:42)
[2021-01-22] MEDS: Cholecalciferol (D-3) 1,000 UNIT (25MCG) TABLET PO SCH (07:42)
[2021-01-22] MEDS: Furosemide 20 MG/2 ML VIAL IVP SCH ×2 (07:42→16:42)
[2021-01-22] MEDS: Nystatin SUSP 5 ML UD.LIQ PO SCH ×4 (07:43→20:38)
[2021-01-22] MEDS: Budesonide/Formoterol 160/4.5 1 PUFF INH IH SCH ×2 (08:17→21:58)
[2021-01-22] MEDS: FentaNYL (PF) 1,000 MCG/100 ML IV.SOLN IVC SCH ×3 (08:19→23:34)
[2021-01-22] MEDS: Lacri-Lube 3.5 GM TUBE BOTH EYES SCH ×2 (08:21→20:39)
[2021-01-22] MEDS ORDERED: *HR* Alteplase (Cathflo) 2 MG VIAL IVP ONE (09:00)
[2021-01-22] MEDS: Norepinephrine 4 MG/254 ML IV.SOLN IVC SCH (09:45)
[2021-01-22] MEDS: Heparin 25,000UNIT/250ML 1/2NS 25,000 UNIT/250 ML IV.SOLN IVC SCH (12:17)
[2021-01-22] MEDS ORDERED: Midazolam HCl 50 MG/100 ML IV.SOLN IVC SCH (12:45)
[2021-01-22] MEDS ORDERED: Insulin DETEMIR 100 UNIT/ML X5UNITS SUBQ ONE (13:00)
[2021-01-22] MEDS ORDERED: Clinimix 5%-20% SOLUTION 2,000 ML with MVI, adult with vitamin K 10 ML, Sodium Phosph... IVC SCH (17:00)
[2021-01-22] MEDS: Insulin DETEMIR 100 UNIT/ML X5UNITS SUBQ SCH (20:39)
[2021-01-23] MEDS: Midazolam HCl 50 MG/100 ML IV.SOLN IVC SCH ×4 (01:05→23:53)
[2021-01-23] MEDS: Heparin 25,000UNIT/250ML 1/2NS 25,000 UNIT/250 ML IV.SOLN IVC SCH ×3 (01:06→14:27)
[2021-01-23] MEDS: Dexmedetomidine HCl 400 MCG/100 ML MLS IVC SCH ×5 (02:03→20:54)
[2021-01-23] MEDS: Ipratropium 1 PUFF INHALER IH SCH ×4 (03:52→21:36)
[2021-01-23] MEDS: Insulin LISPRO 300 UNITS/3 ML VIAL SUBQ SCH ×6 (03:57→23:59)
[2021-01-23 04:07] LABS: Hematocrit 41.8 % (37.5-50.1); Hemoglobin 12.6 g/dL (12.9-16.9); Mean Corpuscular HGB Conc 30.1 g/dL (31.6-35.5); Mean Corpuscular Hemoglobin 30.7 pg (28.0-33.3); Mean Platelet Volume 10.5 fL (9.4-12.4); Nucleated Red Blood Cells 0.2 /100 WBC (0); Red Cell Distribution Width 14.4 % (11.5-14.5)
[2021-01-23 04:08] LABS: Platelet Count 86 K/mcL (140-400)
[2021-01-23 04:21] LABS: BUN/Creatinine Ratio 51 (6-26); Blood Urea Nitrogen 29 mg/dL (6-20); Calcium 8.6 mg/dL (8.6-10.3); Carbon Dioxide 44 mEq/L (23-29); Chloride 90 mEq/L (98-107); Glucose 227 mg/dL (70-105); Magnesium 2.2 mg/dL (1.6-2.6); Osmolality,Calculated 289 (280-300); Phosphorous 3.6 mg/dL (2.7-4.5); Potassium 5.5 mEq/L (3.5-5.1); Sodium 133 mEq/L (136-145); Triglycerides 125 mg/dL (< 150); eGFR For African Americans > 60 (> 60); eGFR For Non-African Americans > 60 (> 60)
[2021-01-23 04:28] LABS: ABG Base Excess 12 mEq/L (-2 to 3); ABG HCO3 42 mEq/L (21-27); ABG Oxygen Saturation 88 % (95-98); ABG PCO2 84 mmHg (35-45); ABG PH 7.31 pH Units (7.32-7.45); ABG PO2 64 mmHg (85-104); ABG TCO2 45 mEq/L (20-26); Blood Gas VT 480 cc
[2021-01-23] MEDS: FentaNYL (PF) 1,000 MCG/100 ML IV.SOLN IVC SCH ×3 (05:12→19:26)
[2021-01-23 05:14] LABS: Lymphocytes # 3.3 K/mcL (0.6-4.6); Monocytes # 1.3 K/mcL (0.0-1.3); Neutrophils # 28.4 K/mcL (1.6-8.9); Platelet Estimate Decreased (Normal); Reactive Lymphocytes Present (Not Present); Toxic Granulation Present (Not Present)
[2021-01-23] MEDS: Budesonide/Formoterol 160/4.5 1 PUFF INH IH SCH ×2 (08:14→21:36)
[2021-01-23] MEDS: Cisatracurium 200 MG in 0.9 % Sodium Chloride 180 ML IVC SCH ×2 (08:17→17:48)
[2021-01-23] MEDS: Chlorhexidine Rinse 15 ML MOUTHWASH MM SCH ×2 (08:25→20:10)
[2021-01-23] MEDS: Pantoprazole 40 MG VIAL IVP SCH (08:25)
[2021-01-23] MEDS: Nystatin SUSP 5 ML UD.LIQ PO SCH ×4 (08:25→20:15)
[2021-01-23] MEDS: Cholecalciferol (D-3) 1,000 UNIT (25MCG) TABLET PO SCH (08:25)
[2021-01-23] MEDS: Dexamethasone Sodium Phos/PF 10 MG/ML VIAL IVP SCH (08:26)
[2021-01-23] MEDS: Furosemide 20 MG/2 ML VIAL IVP SCH ×2 (08:26→16:50)
[2021-01-23] MEDS: Lacri-Lube 3.5 GM TUBE BOTH EYES SCH ×2 (08:27→20:12)
[2021-01-23] MEDS: Insulin DETEMIR 100 UNIT/ML X5UNITS SUBQ SCH ×2 (08:31→20:14)
[2021-01-23 11:52] LABS: ABG Base Excess 15 mEq/L (-2 to 3); ABG HCO3 46 mEq/L (21-27); ABG Oxygen Saturation 81 % (95-98); ABG PCO2 84 mmHg (35-45); ABG PH 7.35 pH Units (7.32-7.45); ABG PO2 51 mmHg (85-104); ABG TCO2 49 mEq/L (20-26); Blood Gas VT 480 cc
[2021-01-23] MEDS: Norepinephrine 4 MG/254 ML IV.SOLN IVC SCH ×2 (14:23→16:24)
[2021-01-23] MEDS: Cefepime HCl 1,000 MG in Water for inj. (sterile) 10 ML IVP SCH ×2 (16:51→23:14)
[2021-01-23] MEDS ORDERED: Clinimix 5%-20% SOLUTION 2,000 ML with MVI, adult with vitamin K 10 ML, Sodium Phosph... IVC SCH (17:00)
[2021-01-23] MEDS: Docusate Oral Soln 100 MG/10 ML UDC GTUBE SCH (20:11)
[2021-01-24] MEDS: Cisatracurium 200 MG in 0.9 % Sodium Chloride 180 ML IVC SCH ×2 (01:13→20:00)
[2021-01-24] MEDS: Dexmedetomidine HCl 400 MCG/100 ML MLS IVC SCH ×5 (02:35→23:18)
[2021-01-24] MEDS: Ipratropium 1 PUFF INHALER IH SCH ×4 (03:15→21:39)
[2021-01-24] MEDS: FentaNYL (PF) 1,000 MCG/100 ML IV.SOLN IVC SCH ×3 (03:37→22:35)
[2021-01-24 04:12] LABS: ABG Base Excess 13 mEq/L (-2 to 3); ABG HCO3 42 mEq/L (21-27); ABG Oxygen Saturation 96 % (95-98); ABG PCO2 78 mmHg (35-45); ABG PH 7.34 pH Units (7.32-7.45); ABG PO2 92 mmHg (85-104); ABG TCO2 44 mEq/L (20-26); Blood Gas VT 480 cc
[2021-01-24] MEDS: Insulin LISPRO 300 UNITS/3 ML VIAL SUBQ SCH ×5 (04:26→21:07)
[2021-01-24] MEDS: Heparin 25,000UNIT/250ML 1/2NS 25,000 UNIT/250 ML IV.SOLN IVC SCH (05:43)
[2021-01-24] MEDS: Norepinephrine 4 MG/254 ML IV.SOLN IVC SCH (05:46)
[2021-01-24 06:07] LABS: Hematocrit 38.2 % (37.5-50.1); Hemoglobin 11.4 g/dL (12.9-16.9); Immature Platelets 9.3 % (1.1-6.1); Mean Corpuscular HGB Conc 29.8 g/dL (31.6-35.5); Mean Corpuscular Hemoglobin 30.7 pg (28.0-33.3); Mean Platelet Volume 12.4 fL (9.4-12.4); Nucleated Red Blood Cells 0.5 /100 WBC (0); Red Blood Count 3.71 M/mcL (4.19-5.50); Red Cell Distribution Width 14.1 % (11.5-14.5)
[2021-01-24 06:20] LABS: Platelet Count 74 K/mcL (140-400)
[2021-01-24 06:22] LABS: White Blood Count 32.4 K/mcL (4.3-11.1)
[2021-01-24 06:25] LABS: BUN/Creatinine Ratio 56 (6-26); Blood Urea Nitrogen 38 mg/dL (6-20); Calcium 8.4 mg/dL (8.6-10.3); Carbon Dioxide 42 mEq/L (23-29); Chloride 90 mEq/L (98-107); Glucose 230 mg/dL (70-105); Magnesium 2.5 mg/dL (1.6-2.6); Osmolality,Calculated 288 (280-300); Phosphorous 3.5 mg/dL (2.7-4.5); Potassium 5.7 mEq/L (3.5-5.1); Sodium 131 mEq/L (136-145); eGFR For African Americans > 60 (> 60); eGFR For Non-African Americans > 60 (> 60)
[2021-01-24 06:44] LABS: Lymphocytes # 1.9 K/mcL (0.6-4.6); Monocytes # 2.6 K/mcL (0.0-1.3); Neutrophils # 27.2 K/mcL (1.6-8.9); Platelet Estimate Decreased (Normal); Reactive Lymphocytes Present (Not Present)
[2021-01-24] MEDS ORDERED: Calcium Gluconate 1gm/50mL 1 GM/50 ML BAG IVPB PRN (07:29)
[2021-01-24] MEDS ORDERED: Insulin Human Regular 10 UNIT in 0.9 % Sodium Chloride 10 ML IV ONE ×2 (07:30→16:07)
[2021-01-24] MEDS ORDERED: *HR* Dextrose 50 % in Water (Syg) 50 ML SYRINGE IVP ONE ×2 (07:31→16:07)
[2021-01-24] MEDS: Midazolam HCl 50 MG/100 ML IV.SOLN IVC SCH ×2 (07:42→20:35)
[2021-01-24] MEDS: Cefepime HCl 1,000 MG in Water for inj. (sterile) 10 ML IVP SCH ×3 (08:04→23:43)
[2021-01-24] MEDS: Pantoprazole 40 MG VIAL IVP SCH (08:05)
[2021-01-24] MEDS: Dexamethasone Sodium Phos/PF 10 MG/ML VIAL IVP SCH (08:05)
[2021-01-24] MEDS: Furosemide 20 MG/2 ML VIAL IVP SCH ×2 (08:06→16:38)
[2021-01-24] MEDS: Cholecalciferol (D-3) 1,000 UNIT (25MCG) TABLET PO SCH (08:07)
[2021-01-24] MEDS: Docusate Oral Soln 100 MG/10 ML UDC GTUBE SCH ×2 (08:07→20:40)
[2021-01-24] MEDS: Lacri-Lube 3.5 GM TUBE BOTH EYES SCH ×2 (08:07→20:46)
[2021-01-24] MEDS: Chlorhexidine Rinse 15 ML MOUTHWASH MM SCH ×2 (08:07→20:40)
[2021-01-24] MEDS: Nystatin SUSP 5 ML UD.LIQ PO SCH ×4 (08:07→20:40)
[2021-01-24] MEDS: Insulin DETEMIR 100 UNIT/ML X5UNITS SUBQ SCH ×2 (08:08→20:40)
[2021-01-24] MEDS: Budesonide/Formoterol 160/4.5 1 PUFF INH IH SCH ×2 (08:10→21:40)
[2021-01-24 15:57] LABS: BUN/Creatinine Ratio 60 (6-26); Blood Urea Nitrogen 46 mg/dL (6-20); Calcium 8.7 mg/dL (8.6-10.3); Carbon Dioxide 42 mEq/L (23-29); Chloride 87 mEq/L (98-107); Glucose 332 mg/dL (70-105); Osmolality,Calculated 297 (280-300); Potassium 5.5 mEq/L (3.5-5.1); Sodium 131 mEq/L (136-145); eGFR For African Americans > 60 (> 60); eGFR For Non-African Americans > 60 (> 60)
[2021-01-24] MEDS ORDERED: Clinimix 5%-20% SOLUTION 2,000 ML with MVI, adult with vitamin K 10 ML, Sodium Phosph... IVC SCH (17:00)
[2021-01-25] MEDS: Insulin LISPRO 300 UNITS/3 ML VIAL SUBQ SCH ×6 (00:51→20:38)
[2021-01-25] MEDS: Ipratropium 1 PUFF INHALER IH SCH ×3 (03:56→15:25)
[2021-01-25] MEDS: Dexmedetomidine HCl 400 MCG/100 ML MLS IVC SCH ×4 (04:15→20:12)
[2021-01-25 04:38] LABS: BUN/Creatinine Ratio 66 (6-26); Blood Urea Nitrogen 41 mg/dL (6-20); Calcium 8.4 mg/dL (8.6-10.3); Carbon Dioxide 40 mEq/L (23-29); Chloride 88 mEq/L (98-107); Glucose 466 mg/dL (70-105); Magnesium 2.6 mg/dL (1.6-2.6); Osmolality,Calculated 303 (280-300); Phosphorous 3.7 mg/dL (2.7-4.5); Potassium 5.2 mEq/L (3.5-5.1); Sodium 131 mEq/L (136-145); eGFR For African Americans > 60 (> 60); eGFR For Non-African Americans > 60 (> 60)
[2021-01-25] MEDS: Cisatracurium 200 MG in 0.9 % Sodium Chloride 180 ML IVC SCH ×3 (04:50→23:30)
[2021-01-25 04:52] LABS: ABG Base Excess 12 mEq/L (-2 to 3); ABG HCO3 43 mEq/L (21-27); ABG Oxygen Saturation 89 % (95-98); ABG PCO2 79 mmHg (35-45); ABG PH 7.34 pH Units (7.32-7.45); ABG PO2 64 mmHg (85-104); ABG TCO2 45 mEq/L (20-26); Blood Gas Modality ASSIST CONTROL; Blood Gas VT 480 cc
[2021-01-25] MEDS: FentaNYL (PF) 1,000 MCG/100 ML IV.SOLN IVC SCH ×3 (05:25→21:00)
[2021-01-25 06:32] LABS: Hematocrit 38.6 % (37.5-50.1); Hemoglobin 11.8 g/dL (12.9-16.9); Immature Platelets 13.2 % (1.1-6.1); Mean Corpuscular HGB Conc 30.6 g/dL (31.6-35.5); Mean Corpuscular Hemoglobin 31.2 pg (28.0-33.3); Mean Corpuscular Volume 102.1 fL (83.0-100.0); Mean Platelet Volume 11.6 fL (9.4-12.4); Red Blood Count 3.78 M/mcL (4.19-5.50); Red Cell Distribution Width 14.7 % (11.5-14.5)
[2021-01-25 06:51] LABS: Platelet Count 83 K/mcL (140-400); White Blood Count 36.5 K/mcL (4.3-11.1)
[2021-01-25] MEDS: Budesonide/Formoterol 160/4.5 1 PUFF INH IH SCH (07:16)
[2021-01-25 07:28] LABS: Lymphocytes # 4.4 K/mcL (0.6-4.6); Monocytes # 3.7 K/mcL (0.0-1.3); Neutrophils # 28.5 K/mcL (1.6-8.9)
[2021-01-25 07:29] LABS: Platelet Estimate Marked Decrease (Normal)
[2021-01-25] MEDS: Pantoprazole 40 MG VIAL IVP SCH (08:47)
[2021-01-25] MEDS: Cefepime HCl 1,000 MG in Water for inj. (sterile) 10 ML IVP SCH ×3 (08:47→23:42)
[2021-01-25] MEDS: Nystatin SUSP 5 ML UD.LIQ PO SCH ×4 (08:48→20:11)
[2021-01-25] MEDS: Furosemide 20 MG/2 ML VIAL IVP SCH ×2 (08:48→16:54)
[2021-01-25] MEDS: Chlorhexidine Rinse 15 ML MOUTHWASH MM SCH ×2 (08:48→20:11)
[2021-01-25] MEDS: Midazolam HCl 50 MG/100 ML IV.SOLN IVC SCH (13:37)
[2021-01-25] MEDS: Docusate Oral Soln 100 MG/10 ML UDC GTUBE SCH ×2 (13:48→20:11)
[2021-01-25] MEDS: Insulin DETEMIR 100 UNIT/ML X5UNITS SUBQ SCH ×2 (13:49→20:14)
[2021-01-25] MEDS: Lacri-Lube 3.5 GM TUBE BOTH EYES SCH ×2 (13:49→20:12)
[2021-01-25] MEDS: Cholecalciferol (D-3) 1,000 UNIT (25MCG) TABLET PO SCH (13:50)
[2021-01-25] MEDS: *HR* Heparin 5,000 UNIT/ML VIAL SQ SCH ×2 (14:09→22:17)
[2021-01-25] MEDS: Norepinephrine 4 MG/254 ML IV.SOLN IVC SCH (15:30)
[2021-01-25] MEDS ORDERED: Albumin 25% 25gram/100mL 25 GM/100 ML IV.SOLN ONE (15:40)
[2021-01-25] MEDS ORDERED: Clinimix 5%-20% SOLUTION 2,000 ML with MVI, adult with vitamin K 10 ML, Sodium Phosph... IVC SCH (17:00)
[2021-01-25 17:43] LABS: Hematocrit 36.8 % (37.5-50.1); Hemoglobin 10.8 g/dL (12.9-16.9); Mean Corpuscular HGB Conc 29.3 g/dL (31.6-35.5); Mean Corpuscular Hemoglobin 30.9 pg (28.0-33.3); Mean Corpuscular Volume 105.1 fL (83.0-100.0); Mean Platelet Volume 12.5 fL (9.4-12.4); Nucleated Red Blood Cells 2.7 /100 WBC (0); Red Cell Distribution Width 15.1 % (11.5-14.5)
[2021-01-25 17:47] LABS: Platelet Count 85 K/mcL (140-400); White Blood Count 37.8 K/mcL (4.3-11.1)
[2021-01-25 17:54] LABS: VBG Ionized Calcium 1.07 mmol/L (1.15-1.35)
[2021-01-25 17:58] LABS: Alanine Aminotransferase 66 Units/L (7-52); Albumin 3.1 g/dL (3.5-5.7); Alkaline Phosphatase 64 Units/L (34-104); Aspartate Amino Transferase 96 Units/L (13-39); BUN/Creatinine Ratio 52 (6-26); Bilirubin,Total 3.3 mg/dL (0.3-1.0); Blood Urea Nitrogen 59 mg/dL (6-20); Calcium 8.4 mg/dL (8.6-10.3); Carbon Dioxide 34 mEq/L (23-29); Chloride 89 mEq/L (98-107); Globulin 3.1 g/dL (2.4-3.5); Glucose 447 mg/dL (70-105); Magnesium 2.8 mg/dL (1.6-2.6); Osmolality,Calculated 306 (280-300); Phosphorous 4.5 mg/dL (2.7-4.5); Potassium 5.2 mEq/L (3.5-5.1); Sodium 130 mEq/L (136-145); Total Protein 6.2 g/dL (6.4-8.9); eGFR For African Americans > 60 (> 60); eGFR For Non-African Americans > 60 (> 60)
[2021-01-25 18:10] LABS: Lymphocytes # 6.1 K/mcL (0.6-4.6); Monocytes # 1.5 K/mcL (0.0-1.3); Platelet Estimate Marked Decrease (Normal); Polychromasia 1+ (Not Present)
[2021-01-26] MEDS: Insulin LISPRO 300 UNITS/3 ML VIAL SUBQ SCH ×6 (00:11→20:59)
[2021-01-26] MEDS: Ipratropium 1 PUFF INHALER IH SCH ×5 (00:16→20:05)
[2021-01-26] MEDS: Budesonide/Formoterol 160/4.5 1 PUFF INH IH SCH ×3 (00:17→20:05)
[2021-01-26] MEDS: Dexmedetomidine HCl 400 MCG/100 ML MLS IVC SCH ×5 (01:30→21:25)
[2021-01-26 04:41] LABS: ABG Base Excess 13 mEq/L (-2 to 3); ABG HCO3 41 mEq/L (21-27); ABG Oxygen Saturation 84 % (95-98); ABG PCO2 72 mmHg (35-45); ABG PH 7.37 pH Units (7.32-7.45); ABG PO2 53 mmHg (85-104); ABG TCO2 44 mEq/L (20-26); Blood Gas Modality ASSIST CONTROL; Blood Gas VT 480 cc
[2021-01-26] MEDS: FentaNYL (PF) 1,000 MCG/100 ML IV.SOLN IVC SCH ×3 (04:45→18:03)
[2021-01-26] MEDS: Midazolam HCl 50 MG/100 ML IV.SOLN IVC SCH (06:20)
[2021-01-26 06:31] LABS: Mean Platelet Volume 12.4 fL (9.4-12.4)
[2021-01-26 06:33] LABS: Hematocrit 33.7 % (37.5-50.1); Hemoglobin 10.6 g/dL (12.9-16.9); Immature Platelets 12.8 % (1.1-6.1); Mean Corpuscular HGB Conc 31.5 g/dL (31.6-35.5); Mean Corpuscular Hemoglobin 32.5 pg (28.0-33.3); Mean Corpuscular Volume 103.4 fL (83.0-100.0); Nucleated Red Blood Cells 3.8 /100 WBC (0); Red Blood Count 3.26 M/mcL (4.19-5.50); Red Cell Distribution Width 15.1 % (11.5-14.5)
[2021-01-26 06:42] LABS: BUN/Creatinine Ratio 72 (6-26); Blood Urea Nitrogen 62 mg/dL (6-20); Calcium 8.8 mg/dL (8.6-10.3); Carbon Dioxide 39 mEq/L (23-29); Chloride 91 mEq/L (98-107); Glucose 216 mg/dL (70-105); Osmolality,Calculated 302 (280-300); Phosphorous 3.2 mg/dL (2.7-4.5); Sodium 134 mEq/L (136-145); eGFR For African Americans > 60 (> 60); eGFR For Non-African Americans > 60 (> 60)
[2021-01-26] MEDS: *HR* Heparin 5,000 UNIT/ML VIAL SQ SCH ×4 (06:42→21:03)
[2021-01-26 06:50] LABS: White Blood Count 31.7 K/mcL (4.3-11.1)
[2021-01-26 06:51] LABS: Platelet Count 86 K/mcL (140-400)
[2021-01-26] MEDS: Cisatracurium 200 MG in 0.9 % Sodium Chloride 180 ML IVC SCH ×2 (07:00→18:32)
[2021-01-26] MEDS: Furosemide 20 MG/2 ML VIAL IVP SCH ×2 (08:10→15:55)
[2021-01-26] MEDS: Pantoprazole 40 MG VIAL IVP SCH (08:10)
[2021-01-26] MEDS: Cefepime HCl 1,000 MG in Water for inj. (sterile) 10 ML IVP SCH ×2 (08:10→15:55)
[2021-01-26] MEDS: Cholecalciferol (D-3) 1,000 UNIT (25MCG) TABLET PO SCH (08:11)
[2021-01-26] MEDS: Docusate Oral Soln 100 MG/10 ML UDC GTUBE SCH ×2 (08:11→20:41)
[2021-01-26] MEDS: Nystatin SUSP 5 ML UD.LIQ PO SCH ×4 (08:11→20:41)
[2021-01-26] MEDS: Chlorhexidine Rinse 15 ML MOUTHWASH MM SCH ×2 (08:11→21:00)
[2021-01-26] MEDS: Lacri-Lube 3.5 GM TUBE BOTH EYES SCH ×2 (08:12→20:39)
[2021-01-26] MEDS: Insulin DETEMIR 100 UNIT/ML X5UNITS SUBQ SCH ×2 (08:13→20:41)
[2021-01-26 08:25] LABS: Lymphocytes # 2.5 K/mcL (0.6-4.6); Monocytes # 1.3 K/mcL (0.0-1.3); Platelet Estimate Marked Decrease (Normal)
[2021-01-26] MEDS: Acetaminophen 325 MG TABLET PO PRN (16:05)
[2021-01-26] MEDS ORDERED: Clinimix 5%-20% SOLUTION 2,000 ML with MVI, adult with vitamin K 10 ML, Sodium Phosph... IVC SCH (17:00)
[2021-01-26] MEDS: Norepinephrine 4 MG/254 ML IV.SOLN IVC SCH ×2 (19:00→23:10)
[2021-01-26] MEDS ORDERED: Acetaminophen IV 500 MG/50 ML BAG IVPB ONE (23:50)
[2021-01-27] MEDS: Insulin LISPRO 300 UNITS/3 ML VIAL SUBQ SCH ×4 (00:06→11:17)
[2021-01-27] MEDS: Cefepime HCl 1,000 MG in Water for inj. (sterile) 10 ML IVP SCH ×2 (00:21→09:13)
[2021-01-27] MEDS: FentaNYL (PF) 1,000 MCG/100 ML IV.SOLN IVC SCH ×2 (00:45→08:40)
[2021-01-27] MEDS: Midazolam HCl 50 MG/100 ML IV.SOLN IVC SCH (00:50)
[2021-01-27] MEDS: Dexmedetomidine HCl 400 MCG/100 ML MLS IVC SCH ×3 (02:15→08:41)
[2021-01-27] MEDS: Cisatracurium 200 MG in 0.9 % Sodium Chloride 180 ML IVC SCH (02:15)
[2021-01-27] MEDS: *HR* Heparin 5,000 UNIT/ML VIAL SQ SCH (03:38)
[2021-01-27 04:08] LABS: Red Cell Distribution Width 15.8 % (11.5-14.5)
[2021-01-27 04:10] LABS: Hematocrit 35.3 % (37.5-50.1); Hemoglobin 10.5 g/dL (12.9-16.9); Immature Platelets 13.3 % (1.1-6.1); Mean Corpuscular HGB Conc 29.7 g/dL (31.6-35.5); Mean Corpuscular Hemoglobin 31.2 pg (28.0-33.3); Mean Corpuscular Volume 104.7 fL (83.0-100.0); Mean Platelet Volume 12.2 fL (9.4-12.4); Red Blood Count 3.37 M/mcL (4.19-5.50); White Blood Count 28.1 K/mcL (4.3-11.1)
[2021-01-27] MEDS: Ipratropium 1 PUFF INHALER IH SCH ×3 (04:11→15:27)
[2021-01-27 04:21] LABS: ABG Base Excess 8 mEq/L (-2 to 3); ABG HCO3 36 mEq/L (21-27); ABG Oxygen Saturation 42 % (95-98); ABG PCO2 66 mmHg (35-45); ABG PH 7.35 pH Units (7.32-7.45); ABG PO2 26 mmHg (85-104); ABG TCO2 38 mEq/L (20-26); Blood Gas Modality ASSIST CONTROL; Blood Gas VT 450 cc
[2021-01-27 04:29] LABS: BUN/Creatinine Ratio 67 (6-26); Blood Urea Nitrogen 69 mg/dL (6-20); Calcium 8.4 mg/dL (8.6-10.3); Carbon Dioxide 37 mEq/L (23-29); Chloride 92 mEq/L (98-107); Glucose 289 mg/dL (70-105); Magnesium 3.1 mg/dL (1.6-2.6); Osmolality,Calculated 307 (280-300); Phosphorous 3.6 mg/dL (2.7-4.5); Potassium 5.4 mEq/L (3.5-5.1); Sodium 133 mEq/L (136-145); eGFR For African Americans > 60 (> 60); eGFR For Non-African Americans > 60 (> 60)
[2021-01-27] MEDS: Norepinephrine 4 MG/254 ML IV.SOLN IVC SCH ×2 (06:56→11:20)
[2021-01-27] MEDS: Budesonide/Formoterol 160/4.5 1 PUFF INH IH SCH (07:34)
[2021-01-27 07:56] LABS: ABG Base Excess 3 mEq/L (-2 to 3); ABG HCO3 31 mEq/L (21-27); ABG Oxygen Saturation 95 % (95-98); ABG PCO2 66 mmHg (35-45); ABG PH 7.28 pH Units (7.32-7.45); ABG PO2 85 mmHg (85-104); ABG TCO2 33 mEq/L (20-26); Blood Gas VT 380 cc
[2021-01-27 08:47] VITALS: O2SAT 99
[2021-01-27 08:57] VITALS: TEMP 101.4
[2021-01-27] MEDS: Insulin DETEMIR 100 UNIT/ML X5UNITS SUBQ SCH (09:13)
[2021-01-27] MEDS: Docusate Oral Soln 100 MG/10 ML UDC GTUBE SCH (09:13)
[2021-01-27] MEDS: Lacri-Lube 3.5 GM TUBE BOTH EYES SCH (09:13)
[2021-01-27] MEDS: Chlorhexidine Rinse 15 ML MOUTHWASH MM SCH (09:13)
[2021-01-27] MEDS: Furosemide 20 MG/2 ML VIAL IVP SCH (09:13)
[2021-01-27] MEDS: Cholecalciferol (D-3) 1,000 UNIT (25MCG) TABLET PO SCH (09:14)
[2021-01-27] MEDS: Nystatin SUSP 5 ML UD.LIQ PO SCH ×2 (09:14→11:17)
[2021-01-27] MEDS: Pantoprazole 40 MG VIAL IVP SCH (09:14)
[2021-01-27] MEDS ORDERED: *HR* FentaNYL (PF) 100 MCG/2 ML VIAL IVP PRN (11:33)
[2021-01-27] MEDS ORDERED: *HR* LORazepam 2 MG/ML VIAL IVP PRN (11:33)
[2021-01-27] MEDS ORDERED: FentaNYL (PF) 1,000 MCG/100 ML IV.SOLN IVC SCH (11:34)
[2021-01-27 12:37] VITALS: BP 88/35; PULSE 99
[2021-01-27] MEDS ORDERED: Scopolamine Patch 1.5 MG PATCH.TD72 TD SCH (13:30)
== END 2021-01-27 17:17 | disposition expired | DRG 207 ==
LOC: 2NNU → SUATTDRO 23:58 → ICNU 01-10 19:57 → 2NNU 01-14 18:07 → ICNU 01-18 11:15
PROVIDERS: ADMIT Internal Medicine; ATTEND Internal Medicine